=== PATIENT | female | born 1965 | race Two or more races ===

== ENCOUNTER 2024-12-13 07:39 | Day surgery (SDC) | payer BC, MEDICAID ==
[2024-12-12 14:05] LABS: MEAN PLATELET VOLUME 7.3 FL (7.4-10.4); RED CELL DISTRIBUTION WIDTH 13.6 % (11.5-14.5)
[2024-12-12 14:20] LABS: CREATININE 0.79 MG/DL (0.40-0.90); TOTAL CARBON DIOXIDE 31.8 MMOL/L (24-32); eGFR 75 ML/MIN
[2024-12-13] VITALS (9 sets, daily range): BP systolic 118–142; BP diastolic 74–85; PULSE 50–62; RESP 12–17; TEMP 98; O2SAT 62–100
[~2024-12-13] VITALS: Ht 157.5 cm; Wt 71.7 kg
[2024-12-13] MEDS: ceFAZolin 2gm/dext,iso 50mL 50 ML IV ONE (05:30)
[~2024-12-13 07:39] MED LIST: NO HOME MEDS
[2024-12-13] MEDS: ringers solution, lacted 1,000 ML IV SCH (08:30)
[2024-12-13] MEDS ORDERED: iohexol 300 MG/1 ML 50ml polymer ONE (09:02)
[2024-12-13] MEDS ORDERED: fentaNYL/PF 50MCG/1 ML 2ML syringe ONE (09:18)
[2024-12-13] MEDS ORDERED: midazolam 1 mg/ML 2ml injection ONE (09:19)
[2024-12-13] MEDS: iohexol 300mg/ml 100ml inj. IV ONE (09:31)
[2024-12-13] MEDS ORDERED: acetaminophen 1,000mg/100ml IV 100 ML IV PRN (09:45)
[2024-12-13] MEDS ORDERED: HYDROmorphone/PF 0.2 MG/ML SYRINGE IV PRN ×2 (09:45)
[2024-12-13] MEDS ORDERED: ondansetron/PF 4mg/2ml inj IV PRN (09:45)
[2024-12-13] MEDS ORDERED: fentaNYL/PF 50MCG/1 ML 2ML syringe IV PRN ×2 (09:45)
[2024-12-13] MEDS ORDERED: hydrALAZINE 20mg/ml inj. IV PRN (09:45)
[2024-12-13] MEDS ORDERED: labetalol 20mg/4ml (5mg/ml) syringe IV PRN (09:45)
[2024-12-13] MEDS ORDERED: ringers solution, lacted 1,000 ML IV SCH (09:45)
--- NOTE | 2024-12-13 09:51 | OPERATIVE REPORT ---
Operative Report Providers to ~ Date of Procedure: Dec 13, 2024 Pre-Operative Diagnosis: Right ureteral stone Post-Operative Diagnosis SAME as PRE-Op Procedure Performed One. Right ureteral stent removal. 2. Right diagnostic ureteroscopy. Three. Right retrograde pyelography. 4. Fluoroscopy with interpretation less than 1 hour. Surgeon: Matt Olvera MD [place] [employer] None. Anesthesiologist: Jerry Bassett Type of Anesthesia: General Findings: Fluoroscopic findings: Right retrograde pyelography demonstrated a normal ureteral course and caliber without any fixed filling defects or anatomic abnormalities. Complications None. Prosthetics\Implants used: None. Estimated Blood Loss: None. Specimen Removed: None. Description of Procedure: The patient was under the effects of general anesthesia and in dorsal lithotomy with her genitals prepped and draped in sterile fashion. The urethra was entered with a 21 Yi scope and we appreciated normal anatomy with an indwelling right ureteral stent which was externalized to the urinary meatus and exchanged for a Glidewire. Alongside this Glidewire semi-rigid ureteroscopy was performed and we identified an area of moderate excoriation of the ureteral mucosa at the distal ureter approximately 1 cm proximal to the ureteral orifice. There was no stone however. The remainder of the ureter appeared normal. Contrast was injected in retrograde fashion to highlight the upper tract collecting system and no abnormalities were observed. We offloaded our semi-rigid ureteral scope and advanced a digital scope over the previously placed wire into the upper tract. Systematically we inspected all calices and identified no stones. We then removed our ureteral scope under vision and saw no damage to the ureter. We elected to not leave a ureteral stent. This marked the end of the procedure. MATT OLVERA MD Dec 13, 2024 09:50
[2024-12-13] MEDS ORDERED: propofol inj 20 ML IV ONE (09:52)
== END 2024-12-13 11:10 | disposition home or self-care (01) ==
LOC: PAS 07:39
PROVIDERS: ATTEND Urology
DX: N13.2 Hydronephrosis with renal and ureteral calculous obstruction (principal); Z79.899 Other long term (current) drug therapy; Z98.891 History of uterine scar from previous surgery; Z98.890 Other specified postprocedural states
CPT/HCPCS: 36415; 52351; 74420; 80053; 82948; 85025; J2250; J2704; J3010; J7030; J7120; Q9967; Z7506; Z7512; 76000; A4338; A4618; A7000; C1769